=== PATIENT | male | born 1985 | race Two or more races ===

== ENCOUNTER 2018-10-24 18:19 | Inpatient (IN) | payer MEDICAID ==
[~2018-10-24] VITALS: Ht 177.8 cm; Wt 107.2 kg
[2018-10-26 07:28] VITALS: BP 124/83
== END 2018-10-26 09:15 | disposition home or self-care (01) | DRG 641 ==
LOC: ED 21:32 → EDIP 21:47 → 4WST 22:24
PROVIDERS: ADMIT Internal Medicine; ATTEND Internal Medicine
DX: E87.6 Hypokalemia (principal); E87.5 Hyperkalemia; T38.0X5A Adverse effect of glucocorticoids and synthetic analogues, initial encounter; E83.42 Hypomagnesemia; H53.8 Other visual disturbances; D72.829 Elevated white blood cell count, unspecified; Y92.89 Other specified places as the place of occurrence of the external cause; Z82.3 Family history of stroke; Z83.3 Family history of diabetes mellitus
CPT/HCPCS: 36415; 72050; 72072; 72141; 74018; 80048; 80053; 82040; 82550; 83735; 84443; 85025; 85651; 93005; 96365; 96366; G0378; J1650; J3480; J3475; J7040

== ENCOUNTER 2018-10-27 01:12 | Emergency (ER) | payer MEDICAID ==
[~2018-10-27] VITALS: Ht 177.8 cm; Wt 108.9 kg
[2018-10-27 01:16] VITALS: BP 135/95
== END 2018-10-27 02:35 | disposition home or self-care (01) ==
LOC: ED 02:05
DX: S16.1XXA Strain of muscle, fascia and tendon at neck level, initial encounter (principal); X58.XXXA Exposure to other specified factors, initial encounter; Y93.89 Activity, other specified; Y92.89 Other specified places as the place of occurrence of the external cause; Y99.8 Other external cause status
CPT/HCPCS: 96372; 99283; J1885